=== PATIENT | male | born 1995 | race Caucasian/White ===

== ENCOUNTER → 2017-05-14 | Outpatient (REF) | payer BC | LOC: M LAB REF 21:32 | DX: J11.1 Influenza due to unidentified influenza virus with other respiratory manifestations (principal) | CPT/HCPCS: 87633 ==

== ENCOUNTER → 2023-06-18 | Outpatient (CLI) | payer OTHER | LOC: M RAD 13:32 | PROVIDERS: ATTEND Physician Assistant Medical | DX: R10.31 Right lower quadrant pain (principal); N50.3 Cyst of epididymis ==